=== PATIENT | male | born 1975 | race Caucasian/White ===

== ENCOUNTER 2020-02-29 16:04 | Emergency (ER) | payer OTHER, BC ==
[~2020-02-29] VITALS: Ht 175.3 cm; Wt 109.1 kg
[2020-02-29] MEDS ORDERED: morphine 4 MG/ML inj SYRINge IV ONE (17:35)
[2020-02-29] MEDS ORDERED: ondansetron/PF 4mg/2ml inj IV ONE (17:35)
[2020-02-29] MEDS ORDERED: iohexol 300mg/ml 100ml inj. ONE (17:41)
[2020-02-29] MEDS ORDERED: HYDROcodone/acetaminophen 5mg/325mg tablet PO ONE (18:25)
[2020-02-29] MEDS ORDERED: HYDR-3965 PO (19:24)
[2020-02-29 19:50] VITALS: BP 146/99
== END 2020-02-29 19:49 | disposition home or self-care (01) ==
LOC: ER 16:05
DX: M54.2 Cervicalgia (principal); M54.6 Pain in thoracic spine; R41.0 Disorientation, unspecified; V87.7XXA Person injured in collision between other specified motor vehicles (traffic), initial encounter; Y92.89 Other specified places as the place of occurrence of the external cause; Y92.488 Other paved roadways as the place of occurrence of the external cause; Y99.8 Other external cause status
CPT/HCPCS: 70450; 71260; 72125; 74177; 99285; Q9967